=== PATIENT | female | born 1975 | race Caucasian/White ===

== ENCOUNTER 2016-11-08 16:02 | Emergency (ER) | payer OTHER ==
[2016-11-08] MEDS ORDERED: HYDROmorphone HCL/PF 1 MG/ML DISP.SYRIN ONE (16:03)
[2016-11-08] MEDS ORDERED: HYDROmorphone HCL/PF 1 MG/ML DISP.SYRIN IVP ONE (16:06)
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
[2016-11-08] MEDS ORDERED: DIPH,PERTUSS(ACELL),TET VAC/PF 0.5 ML DISP.SYRIN IM ONE (17:11)
[2016-11-08 17:41] VITALS: BP 124/72
== END 2016-11-08 17:30 | disposition home or self-care (01) ==
LOC: ED 16:02
DX: T20.10XA Burn of first degree of head, face, and neck, unspecified site, initial encounter (principal); T22.10XA Burn of first degree of shoulder and upper limb, except wrist and hand, unspecified site, initial encounter; T31.11 Burns involving 10-19% of body surface with 10-19% third degree burns; X02.0XXA Exposure to flames in controlled fire in building or structure, initial encounter; Y93.9 Activity, unspecified; Y99.9 Unspecified external cause status
CPT/HCPCS: 90715; J1170; 90471; 96374; 99283; 99284; S1016